=== PATIENT | female | born 1925 | race Caucasian/White ===

== ENCOUNTER → 2017-01-01 | Outpatient (CLI) | payer MEDICARE, OTHER ==
[~2017-01-01] MED LIST: APRESOLINE25 MG PO; ASPIRIN325 MG PO; LASIX40 MG PO; LIPITOR20 MG PO; STOOL SOFTENER100 MG PO; SYNTHROID75 MCG PO; TOPROL XL25 MG PO
== END | disposition short-term general hospital (02) ==
LOC: CLCARD 12-04 11:43
DX: I25.10 Atherosclerotic heart disease of native coronary artery without angina pectoris (principal); E78.5 Hyperlipidemia, unspecified; R07.9 Chest pain, unspecified; I48.91 Unspecified atrial fibrillation; I44.7 Left bundle-branch block, unspecified; I10 Essential (primary) hypertension

== ENCOUNTER → 2017-04-02 | Outpatient (CLI) | payer MEDICARE, OTHER | END | disposition short-term general hospital (02) | LOC: CLCARD 05:39 | DX: I44.7 Left bundle-branch block, unspecified (principal); I48.91 Unspecified atrial fibrillation; E78.5 Hyperlipidemia, unspecified; I10 Essential (primary) hypertension; Z95.2 Presence of prosthetic heart valve ==